=== PATIENT | female | born 1970 | race Caucasian/White ===

== ENCOUNTER 2018-06-27 10:26 | Emergency (ER) | payer SELFPAY ==
[~2018-06-27] VITALS: Ht 167.6 cm; Wt 79.8 kg
[2018-06-27 10:32] VITALS: Ht 167.6 cm; Wt 79.8 kg
[2018-06-27 11:00] LABS: BASOPHIL % 0.6 % (0-2); PLATELET COUNT 269 x10^3mcL (130-400); RED CELL DISTRIBUTION WIDTH 13.6 % (11.5-14.5)
[2018-06-27 11:11] LABS: CALCIUM 9.2 mg/dL (8.5-10.1); CHLORIDE SERUM 106 mmol/L (98-107); CREATININE SERUM 0.7 mg/dL (0.6-1.0); GFR1 > 60 mL/min; GLUCOSE SERUM 91 mg/dL (74-106); POTASSIUM SERUM 3.9 mmol/L (3.5-5.1); SODIUM SERUM 141 mmol/L (136-145)
[2018-06-27 15:10] VITALS: BP 128/66
== END 2018-06-27 15:10 | disposition left against medical advice (07) ==
LOC: ED 10:26
PROVIDERS: Emergency Medicine
DX: J36 Peritonsillar abscess (principal)
CPT/HCPCS: J0295; J1100; J1885; J2001; J3490; J7030; Q9967